=== PATIENT | male | born 1980 | race Two or more races ===

== ENCOUNTER 2018-03-05 16:37 | Emergency (ER) | payer OTHER ==
[2018-03-05 17:14] VITALS: BP 115/68
[2018-03-05] MEDS ORDERED: IBUPROFEN 600 MG TABLET PO ONE (17:38)
[2018-03-05] MEDS ORDERED: LIDOCAINE 1% INJ-PF (10 MG/ML) 30 ML SDV INJ ONE (17:38)
[2018-03-05] MEDS ORDERED: DIPH/PERTUSS(ACELL)/TETANUS VAC/PF 0.5 ML SYR (>=10YO) IM ONE (17:40)
--- NOTE | 2018-03-05 18:15 | RADIOLOGY REPORT (SQ) ---
EXAM DESCRIPTION: HAND RIGHT 3 VIEWS COMPLETED DATE/TIME: 03/05/2018 6:01 pm REASON FOR STUDY: laceration, eval for FB or tendon involvement COMPARISON: None. EXAM PARAMETERS: NUMBER OF VIEWS: Three views. TECHNIQUE: AP, lateral and oblique radiographic images acquired of the right hand. LIMITATIONS: None. FINDINGS: MINERALIZATION: Normal. BONES: No acute fracture or dislocation. No worrisome bone lesions. JOINTS: No effusions. SOFT TISSUES: No foreign body. OTHER: No other significant finding. IMPRESSION: No evidence of retained radiopaque foreign body or osseous injury. TECHNICAL DOCUMENTATION: JOB ID: [id number] [employer]- All Rights Reserved Reading location - IP/workstation name: [email or web address]
--- NOTE | 2018-03-05 19:18 | ER Document Report ---
HPI - HPI Time Seen by Provider: 03/05/18 17:25 Pain Level: 3 Notes: Patient is an otherwise healthy 37-year-old male who presents with chief complaint of laceration to his right hand. Patient states he was doing yard work with a machete when he cut himself. Patient reports laceration to the distal end of his right index finger as well as laceration in between the webspace of digits 2 and 3 on the right hand. There is mild active bleeding noted. Patient's immunizations are all up to date. - REPRODUCTIVE Reproductive: DENIES: : Past Medical History - General Information source: Patient - Social History Smoking Status: Never Smoker Chew tobacco use (# tins/day): No Frequency of alcohol use: Occasional Drug Abuse: None Family History: Reviewed & Not Pertinent Patient has suicidal ideation: No Patient has homicidal ideation: No - Medical History Medical History: Negative Renal/ Medical History: Denies: Hx Peritoneal Dialysis Surgical Hx: Negative - Immunizations Immunizations up to date: Yes Vertical Provider Document - CONSTITUTIONAL Notes: PHYSICAL EXAMINATION: GENERAL: Well-appearing, well-nourished and in no acute distress. HEAD: Atraumatic, normocephalic. EYES: Pupils equal round extraocular movements intact, conjunctiva are normal. ENT: Nares patent NECK: Normal range of motion LUNGS: No respiratory distress Musculoskeletal: Normal range of motion NEUROLOGICAL: Normal speech, normal gait. PSYCH: Normal mood, normal affect. SKIN: Warm, Dry, normal turgor, no rashes or lesions noted. 2 cm laceration noted in between second and third digits near the webspace of the right hand. 4 cm laceration to the distal portion of the right index finger that radiates around from the posterior to the anterior surface of the finger. Bleeding is controlled at this time. - INFECTION CONTROL TRAVEL OUTSIDE OF THE [place] IN LAST 30 DAYS: No Course - Re-evaluation Re-evalutation: Lacerations were repaired under sterile technique, see procedure note. Patient tolerated well. Patient placed on p.o. antibiotics as prophylaxis for i nfection. - Vital Signs Vital signs: Temp Pulse Resp BP Pulse Ox 98.5 F 67 14 115/68 97 03/05/18 17:12 03/05/18 17:12 03/05/18 17:12 03/05/18 17:12 03/05/18 17:12 Procedures - Laceration/Wound Repair Right distal index finger Wound length (cm): 4 Wound's Depth, Shape: Superficial Laceration pre-procedure: Sterile PPE donned Anesthetic type: 1% Lidocaine Volume Anesthetic (mLs): 3 Wound explored: Foreign body removed Irrigated w/ Saline (mLs): 200 Wound Repaired With: Sutures Suture Size/Type: 4:0, Nylon Number of Sutures: 8 Webspace between second and third digits on right hand Wound length (cm): 2 Wound's Depth, Shape: Superficial Laceration pre-procedure: Sterile PPE donned, Sterile drapes applied Anesthetic type: 1% Lidocaine Volume Anesthetic (mLs): 3 Wound explored: Clean, Foreign body removed Irrigated w/ Saline (mLs): 100 Wound Debrided: Minimal Wound Repaired With: Oxford Suture Size/Type: 4:0, Nylon Number of Sutures: 3 Discharge - Discharge Clinical Impression: Laceration Condition: Stable Disposition: HOME, SELF-CARE Additional Instructions: Laceration Care Your laceration has been sutured to keep the skin edges aligned during healing. The time of suture removal depends on the nature and location of your cut. Please follow the care instructions the doctor has outlined for you and return for further care, according to the schedule you've been given. Keep the wound and dressing clean. Unless you were told otherwise, you may shower daily, blotting the wound dry with a clean, unused towel. At other times, If the dressing gets wet or blood soaked, remove it and blot the wound dry, then reapply a new dressing. Unless you were instructed otherwise, dressings should be changed at least daily. If any signs of infection occur (swelling, redness, increasing tenderness, red streaks, tender lumps in the armpit or groin above the laceration, or fever), see the doctor immediately. Please return to the emergency department or your primary care provider in 12-14 days for suture removal. Please return earlier if you develop any signs of infection such as increased redness, swelling, foul-smelling drainage or fever. Prescriptions: Clindamycin HCl 300 mg PO TID #30 capsule Referrals: RONNA LOPES PA [Primary Care Provider] - Follow up as needed
== END 2018-03-05 19:26 | disposition home or self-care (01) ==
LOC: ER 16:37
PROC: 0HQFXZZ Repair Right Hand Skin, External Approach (ICD-10-PCS; principal; 2018-03-05)
DX: S61.411A Laceration without foreign body of right hand, initial encounter (principal); W27.8XXA Contact with other nonpowered hand tool, initial encounter
CPT/HCPCS: 99283; 90471; 73130; 90715; 12002; J3490